=== PATIENT | male | born 1940 | race Caucasian/White ===

== ENCOUNTER 2017-08-20 18:36 | Observation (INO) | payer BC, OTHER ==
--- NOTE | 2017-08-20 18:37 | PDOC ---
History of Present Illness <Winnie Payne - Last Filed: 08/20/17 18:39> - General History Source: Patient Exam Limitations: No Limitations - History of Present Illness Initial Comments: 08/20/17 19:02 The patient is a 76-year-old male, with a significant past medical history of CAD (stent x1 placed back in 1988), HTN, who presents to the ED with chest and neck discomfort today. The patient states that he experienced 3 episodes of pressure-like chest discomfort radiating up to his neck. At the onset of his pain the patient states he was not doing anything exertional but he does report shoveling snow and walking on the treadmill earlier in the day. He denies any diaphoresis or clamminess. He denies any nausea or shortness of breath. He took a full aspirin prior to arrival. He denies having a history of HI. The patient has no chest pain at this time. The patient denies any fever, chills, nausea, vomiting, diarrhea, or abdominal pain. <Macy Hastings - Last Filed: 08/20/17 19:09> - General Chief Complaint: Chest Pain Stated Complaint: chest pain Time Seen by Provider: 08/20/17 18:37 Past History <Winnie Payne - Last Filed: 08/20/17 18:39> <Macy Hastings - Last Filed: 08/20/17 19:09> - Past Medical History Allergies/Adverse Reactions: Allergies Allergy/AdvReac Type Severity Reaction Status Date / Time No Known Allergies Allergy Verified 08/20/17 18:37 Home Medications: Ambulatory Orders Acetaminophen [Tylenol] 325 mg PO QID PRN 08/20/17 Aspirin 81 mg PO DAILY 08/20/17 Atorvastatin Ca [Lipitor] 20 mg PO HS 08/20/17 Azelastine HCl [Astepro] 0 - 2 spr NS DAILY 08/20/17 Gabapentin 200 mg PO HS 08/20/17 Melatonin 1 mg PO HS 08/20/17 Metoprolol Tartrate 25 mg PO DAILY 08/20/17 Multivitamin/Iron/Folic Acid [Centrum Adults Tablet] 1 each PO ASDIR 08/20/17 Sildenafil Citrate [Viagra] 100 mg PO ASDIR 08/20/17 Simvastatin 20 mg PO DAILY 08/20/17 Zolpidem Tartrate [Ambien Cr] 12.5 mg PO DAILY PRN 08/20/17 Review of Systems - Review of Systems Able to Perform ROS?: Yes Comments:: 08/20/17 19:02 GENERAL/CONSTITUTIONAL: No fever or chills. No weakness. HEAD, EYES, EARS, NOSE AND THROAT: No change in vision. No ear pain or discharge. No sore throat. CARDIOVASCULAR: (+)chest discomfort. No shortness of breath. RESPIRATORY: No cough, wheezing, or hemoptysis. GASTROINTESTINAL: No nausea, vomiting, diarrhea or constipation. GENITOURINARY: No dysuria, frequency, or change in urination. MUSCULOSKELETAL: No joint or muscle swelling or pain. No neck or back pain. SKIN: No rash NEUROLOGIC: No headache, vertigo, loss of consciousness, or change in strength/ sensation. ENDOCRINE: No increased thirst. No abnormal weight change. HEMATOLOGIC/LYMPHATIC: No anemia, easy bleeding, or history of blood clots. ALLERGIC/IMMUNOLOGIC: No hives or skin allergy. <Macy Hastings - Last Filed: 08/20/17 19:09> *Physical Exam - Vital Signs Last Vital Signs Temp Pulse Resp BP Pulse Ox 97.9 F 60 18 124/63 100 08/20/17 18:36 08/20/17 18:36 08/20/17 18:36 08/20/17 18:36 08/20/17 18:36 - Physical Exam Comments: 08/20/17 19:05 GENERAL: Awake, alert, and fully oriented, in no acute distress HEAD: No signs of trauma EYES: PERRLA, EOMI, sclera anicteric, conjunctiva clear ENT: Auricles normal inspection, hearing grossly normal, nares patent, oropharynx clear without exudates. Moist mucosa NECK: Normal ROM, supple, no lymphadenopathy, JVD, or masses LUNGS: Breath sounds equal, clear to auscultation bilaterally. No wheezes, and no crackles HEART: Regular rate and rhythm, normal S1 and S2, no murmurs, rubs or gallops ABDOMEN: Soft, nontender, normoactive bowel sounds. No guarding, no rebound. No masses EXTREMITIES: Normal range of motion, no edema. No clubbing or cyanosis. No cords, erythema, or tenderness NEUROLOGICAL: Cranial nerves II through XII grossly intact. Normal speech, normal gait SKIN: Warm, Dry, normal turgor, no rashes or lesions noted <Macy Hastings - Last Filed: 08/20/17 19:09> Heart Score/ECG Review - ECG Intrepretation Comment:: 08/20/17 18:39 sinus at 60 w 1st degree av block, nl axis, nl interval, no acute st/t wave findings <Winnie Payne - Last Filed: 08/20/17 18:39> ED Treatment Course - LABORATORY CBC & Chemistry Diagram: 08/20/17 18:40 08/20/17 18:48 <Macy Hastings - Last Filed: 08/20/17 19:09> Medical Decision Making - Medical Decision Making 08/20/17 18:41 a/p: 76yo male with hx of CAD w stent in to RCA with cp/neck pain -concerning given hx of CAD for acs -chest and neck pressure today intermittently x 3 episodes -ekg nonacute -will check labs, ekg, cxr, trops -took ASA coke burner -will need ACS r/o -no PE risk factors <Winnie Payne - Last Filed: 08/20/17 18:39> *DC/Admit/Observation/Transfer - Attestations Physician Attestion: 08/20/17 18:43 I, Dr. Winnie Payne DO, attest that this document has been prepared under my direction and personally reviewed by me in its entirety. I further attest, that it accurately reflects all work, treatment, procedures and medical decision -making performed by me. <Winnie Payne - Last Filed: 08/20/17 18:39> - Attestations Scribe Attestion: 08/20/17 19:06 Documentation prepared by Macy Hastings, acting as biomedical equipment tech for Winnie Payne DO, MD. <Macy Hastings - Last Filed: 08/20/17 19:09> Diagnosis at time of Disposition: Chest pain - Discharge Dispostion Condition at time of disposition: Fair
[2017-08-20 19:13] LABS: EOS % 5.1 % (0-4.5); MCH 25.6 pg (25.7-33.7); MCHC 33.9 g/dl (32.0-35.9); MEAN CELL VOLUME 75.5 fl (80-96); MEAN PLT VOLUME 9.7 fl (7.5-11.1); NEUT % 68.2 % (42.8-82.8); PLATELET COUNT 140 K/MM3 (134-434); RDW 14.6 % (11.9-15.9); WHITE BLOOD COUNT 8.6 K/mm3 (4.0-10.8)
[2017-08-20 19:15] LABS: ACTIVATED PTT 26.2 SECONDS (24.0-38.9)
[2017-08-20 19:18] LABS: ALBUMIN 3.9 g/dl (3.5-5.0); ALK PHOS 60 U/L (32-92); ANION GAP 7 (8-16); BILIRUBIN,TOTAL 0.5 mg/dl (0.2-1.0); CALCIUM 8.9 mg/dl (8.4-10.2); CO2 25 mmol/L (22-28); CREATININE 1.2 mg/dl (0.6-1.3); GLUCOSE,RANDOM 102 mg/dl (74-106); SGOT/AST 25 U/L (10-42); SGPT/ALT 19 U/L (10-40); TOT PROT 5.7 g/dl (6.4-8.3)
[2017-08-20 19:19] LABS: CPK 201 IU/L (39-308)
--- NOTE | 2017-08-20 19:20 | PDOC ---
*Physical Exam - Vital Signs Last Vital Signs Temp Pulse Resp BP Pulse Ox 97.9 F 60 18 124/63 100 08/20/17 18:36 08/20/17 18:36 08/20/17 18:36 08/20/17 18:36 08/20/17 18:36 ED Treatment Course - LABORATORY CBC & Chemistry Diagram: 08/20/17 18:40 08/20/17 18:48 - ADDITIONAL ORDERS Additional order review: Laboratory Results 08/20/17 18:48 PTT (Actin FS) 26.2 L 08/20/17 18:40 RBC 5.07 MCV 75.5 L MCHC 33.9 RDW 14.6 MPV 9.7 Neutrophils % 68.2 Lymphocytes % 19.5 Monocytes % 6.2 Eosinophils % 5.1 H Basophils % 1.0 Progress Note - Progress Note Progress Note: Care of this patient was transferred to Dr. Payne at 1900 hrs. This is a 76- year-old male with a good story for chest pain/ACS. Patient has a workup in progress. Plan is that patient will need to be admitted to a observation telemetry bed if his workup is negative. 19:30 Reevaluation. Patient remains chest pain-free in the emergency room. His troponin is less than 0.03 His chest x-ray shows no acute pathology His EKG shows no acute ST-T wave changes. Discussed with patient and observation admission to rule out ACS with 2 more sets of enzymes. Patient will be admitted to a observation telemetry bed. Discussed admission with the hospitalist team who will admit patient. Patient accepted for observation admission. *DC/Admit/Observation/Transfer Diagnosis at time of Disposition: Chest pain Qualifiers: Chest pain type: unspecified Qualified Code(s): R07.9 - Chest pain, unspecified - Discharge Dispostion Disposition: AGAINST MEDICAL ADVICE Condition at time of disposition: Fair Admit: Yes - Referrals - Patient Instructions - Post Discharge Activity
[2017-08-20 19:25] LABS: BASO # 0.1 # (0.1-1); EOS # 0.4 #; LYMPH # 1.7 # (8-40); MONO # 0.5 #; NEUT # 5.9 # (42.8-82.8)
[2017-08-20 19:26] LABS: INR 1.2 (0.82-1.09); PROTHROMBIN TIME (PATIENT) 13.4 SEC (10.2-13.0)
[2017-08-20 19:42] LABS: TROPONIN I (DFP) < 0.03 ng/ml (0.03-0.50)
--- NOTE | 2017-08-20 22:32 | HP ---
CHIEF COMPLAINT: Chest pressure PCP: [facility] [place]; Cardiology: Freddie Lopez, [facility] HISTORY OF PRESENT ILLNESS: This is a 76 year old male with a past medical history of CAD, stent '98 RCA, HTN, HLD who presented to the ED with c/o 3 episodes chest/neck pressure today. The episodes occurred spontaneously at rest, no precipitating or alleviating factors. Resolved without intervention after a few minutes each time. Pt did his usual exercise activity on the bike in the AM and the treadmill in PM without any symptoms. He has no symptoms on exam. ER course was notable for: (1) troponin neg (2) ECG WNl Recent Travel: [place] in May PAST MEDICAL HISTORY: CAD s/p RCA stent 98 HTN HLD reflux OA PAST SURGICAL HISTORY: hemorrhoidectomy vasectomy tonsil/adenoidectomy appendectomy prostatectomy R TKR B/L [facility] surgery mult toes Social History: Smoking: quit 50y ago Alcohol: cordial at bedtime, used to drink one glass red wine with dinner but recently stopped Drugs: pt denies Family History: mother , 80s, CVA father early 50s, CVA vs NM one brother with a 4v CABG Allergies No Known Allergies Allergy (Verified 08/20/17 18:37) HOME MEDICATIONS: 3 Medication Instructions Recorded Acetaminophen [Tylenol] 325 mg PO QID PRN 08/20/17 Aspirin 81 mg PO DAILY 08/20/17 Atorvastatin Ca [Lipitor] 20 mg PO HS 08/20/17 Azelastine HCl [Astepro] 0 - 2 spr NS DAILY 08/20/17 Desloratadine 5 mg PO HS 08/20/17 Gabapentin 200 mg PO HS 08/20/17 Melatonin 1 mg PO HS 08/20/17 Metoprolol Tartrate 25 mg PO DAILY 08/20/17 Multivitamin/Iron/Folic Acid 1 each PO ASDIR 08/20/17 [Centrum Adults Tablet] Ranitidine HCl 75 mg PO DAILY 08/20/17 Sildenafil Citrate [Viagra] 100 mg PO ASDIR 08/20/17 Zolpidem Tartrate [Ambien Cr] 12.5 mg PO DAILY PRN 08/20/17 REVIEW OF SYSTEMS CONSTITUTIONAL: Absent: fever, chills, diaphoresis, generalized weakness, malaise, loss of appetite, weight change HEENT: Absent: rhinorrhea, nasal congestion, throat pain, throat swelling, difficulty swallowing, mouth swelling, ear pain, eye pain, visual changes CARDIOVASCULAR: Present: chest pressure Absent: chest pain, syncope, palpitations, irregular heart rate, lightheadedness , peripheral edema RESPIRATORY: Absent: cough, shortness of breath, dyspnea with exertion, orthopnea, wheezing, stridor, hemoptysis GASTROINTESTINAL: Absent: abdominal pain, abdominal distension, nausea, vomiting, diarrhea, constipation, melena, hematochezia GENITOURINARY: Absent: dysuria, frequency, urgency, hesitancy, hematuria, flank pain, genital pain MUSCULOSKELETAL: Absent: myalgia, arthralgia, joint swelling, back pain, neck pain SKIN: Absent: rash, itching, pallor HEMATOLOGIC/IMMUNOLOGIC: Absent: easy bleeding, easy bruising, lymphadenopathy, frequent infections ENDOCRINE: Absent: unexplained weight gain, unexplained weight loss, heat intolerance, cold intolerance NEUROLOGIC: Absent: headache, focal weakness or paresthesias, dizziness, unsteady gait, seizure, mental status changes, bladder or bowel incontinence PSYCHIATRIC: Absent: anxiety, depression, suicidal or homicidal ideation, hallucinations. PHYSICAL EXAMINATION Vital Signs - 24 hr 3 08/20/17 18:36 Temperature 97.9 F Pulse Rate 60 Respiratory 18 Rate Blood Pressure 124/63 O2 Sat by Pulse 100 Oximetry (%) GENERAL: Awake, alert, and fully oriented, in no acute distress. HEAD: Normal with no signs of trauma. EYES: Pupils equal, round and reactive to light, extraocular movements intact, sclera anicteric, conjunctiva clear. No lid lag. EARS, NOSE, THROAT: Ears normal, nares patent, oropharynx clear without exudates. Moist mucous membranes. NECK: Normal range of motion, supple without lymphadenopathy, JVD, or masses. LUNGS: Breath sounds equal, clear to auscultation bilaterally. No wheezes, and no crackles. No accessory muscle use. HEART: Regular rate and rhythm, normal S1 and S2 without murmur, rub or gallop. ABDOMEN: Soft, nontender, not distended, normoactive bowel sounds, no guarding, no rebound, no masses. No hepatomegaly or splenomegaly. MUSCULOSKELETAL: Normal range of motion at all joints. No bony deformities or tenderness. No CVA tenderness. UPPER EXTREMITIES: 2+ pulses, warm, well-perfused. No cyanosis. No clubbing. No peripheral edema. LOWER EXTREMITIES: 2+ pulses, warm, well-perfused. No calf tenderness. No peripheral edema. NEUROLOGICAL: Cranial nerves II-XII intact. Normal speech. Normal gait. PSYCHIATRIC: Cooperative. Good eye contact. Appropriate mood and affect. SKIN: Warm, dry, normal turgor, no rashes or lesions noted, normal capillary refill. Laboratory Results - last 24 hr 3 08/20/17 08/20/17 08/20/17 18:40 18:48 18:48 WBC 8.6 RBC 5.07 Hgb 13.0 Hct 38.3 MCV 75.5 L MCH 25.6 L MCHC 33.9 RDW 14.6 Plt Count 140 MPV 9.7 Neutrophils % 68.2 Lymphocytes % 19.5 Monocytes % 6.2 Eosinophils % 5.1 H Basophils % 1.0 PT with INR 13.4 H INR 1.20 PTT (Actin FS) 26.2 L Sodium 136 Potassium 4.4 Chloride 104 Carbon Dioxide 25 Anion Gap 7 L BUN 32 H Creatinine 1.2 Creat Clearance w eGFR 58.71 Random Glucose 102 Calcium 8.9 Magnesium 2.0 Total Bilirubin 0.5 AST 25 ALT 19 Alkaline Phosphatase 60 Creatine Kinase 201 Creatine Kinase Index 4.3 CK-MB (CK-2) 8.7 H Troponin I < 0.03 L B-Natriuretic Peptide 208.95 Total Protein 5.7 L Albumin 3.9 ECG Normal sinus rhythm vent rate 60, QTC [address]/t changes Radiology Reports CXR No obvious infiltrate or effusion ASSESSMENT/PLAN: 76yM with PMH CAD, stent, HTN, HLD, OA presented to the ED with 3 episodes chest pressure today. Chest pain - trend troponin x 3, 1st negative - cardiology consult as outpatient unless trop abnl - cardiac monitoring overnight HTN/HLD - cont home meds GERD - cont home zantac OA - cont home tylenol DVT PPX - chemoprophylaxis deferred as expected LOS <48h FEN - defer IV fluids, tolerating PO - BMP in am - low sodium diet in am Dispo: given pt h/o CAD and stent placement in past, he warrants overnight monitoring in telemetry. Visit type - Emergency Visit Emergency Visit: Yes ED Registration Date: 08/20/17 Care time: The patient presented to the Emergency Department on the above date and was hospitalized for further evaluation of their emergent condition. - New Patient This patient is new to me today: Yes Date on this admission: 08/20/17 - Critical Care Critical Care patient: No
[2017-08-20] MEDS ORDERED: ZOLPIDEM TARTRATE 5 MG TABLET PO PRN (22:40)
[2017-08-20] MEDS ORDERED: MULTIVITAMINS (DAILY MVI) TABLET (FP) PO SCH (22:45)
[2017-08-20] MEDS ORDERED: GABAPENTIN 100 MG CAPSULE (FP) PO ONE (23:15)
[2017-08-20] MEDS ORDERED: ATORVASTATIN CA 20 MG TABLET (FP) PO ONE (23:30)
[2017-08-20 23:46] VITALS: BMI 23.5
[2017-08-21 02:21] LABS: CPK 157 IU/L (39-308); TROPONIN I < 0.02 ng/ml (0.00-0.05)
[2017-08-21] MEDS ORDERED: ACETAMINOPHEN 325 MG TABLET (FP) PO SCH (08:00)
[2017-08-21] MEDS ORDERED: ACETAMINOPHEN 500 MG TABLET (FP) PO SCH (08:00)
[2017-08-21 08:17] LABS: BASO % 0.7 % (0-2.0); EOS % 5.6 % (0-4.5); MCH 25.8 pg (25.7-33.7); MCHC 33.9 g/dl (32.0-35.9); MEAN PLT VOLUME 10.7 fl (7.5-11.1); NEUT % 68.1 % (42.8-82.8); PLATELET COUNT 139 K/MM3 (134-434); RDW 14.5 % (11.9-15.9)
[2017-08-21 08:37] LABS: ANION GAP 6 (8-16); CALCIUM 9.2 mg/dl (8.4-10.2); CO2 27 mmol/L (22-28); CREATININE 1.2 mg/dl (0.6-1.3); GLUCOSE,RANDOM 100 mg/dl (74-106); MAGNESIUM 2.1 mg/dL (1.8-2.4)
[2017-08-21 08:38] LABS: CPK 150 IU/L (39-308)
[2017-08-21 09:16] VITALS: BP 125/58; PULSE 58; TEMP 97.6
[2017-08-21 09:20] LABS: TROPONIN I (DFP) < 0.03 ng/ml (0.03-0.50)
--- NOTE | 2017-08-21 09:26 | DS ---
Physical Exam: SUBJECTIVE: Patient seen and examined, ambulatory at bedside, denies any dyspnea upon exertion, denies any chest pain or shortness of breath. Patient reports chest discomfort resolved prior to arrival to the emergency department. OBJECTIVE: Patient is a 76 year old male with a past medical history of CAD, stent '98 RCA, HTN, HLD who presented to the ED with c/o 3 episodes chest/neck pressure today. The episodes occurred spontaneously at rest, no precipitating or alleviating factors. Resolved without intervention after a few minutes each time. Pt did his usual exercise activity on the bike in the AM and the treadmill in PM without any symptoms. He has no symptoms on exam. ER course was notable for: (1) troponin neg (2) ECG WNl padded products inspector trimmer: Dr Lopez Vital Signs Period Temp Pulse Resp BP Sys/Lott Pulse Ox Last 24 Hr 97.6 F-98.7 F 51-60 17-18 123-138/57-63 97-100 PHYSICAL EXAM GENERAL: The patient is thin, awake, alert, and fully oriented, in no acute distress. HEAD: Normal with no signs of trauma. EYES: PERRL, extraocular movements intact, sclera anicteric, conjunctiva clear. ENT: Ears normal, nares patent, oropharynx clear without exudates, moist mucous membranes. NECK: Trachea midline, full range of motion, supple. LUNGS: Breath sounds equal, clear to auscultation bilaterally, no wheezes, no crackles, no accessory muscle use. HEART: Regular rate and rhythm, S1, S2, 3/6 systolic murmur, no rub or gallop. ABDOMEN: Soft, nontender, nondistended, normoactive bowel sounds, no guarding, no rebound, no hepatosplenomegaly, no masses. EXTREMITIES: 2+ pulses, warm, well-perfused, no edema. NEUROLOGICAL: Cranial nerves II through XII grossly intact. Normal speech, gait not observed. PSYCH: Normal mood, normal affect. SKIN: Warm, dry, normal turgor, no rashes or lesions noted. LABS Laboratory Results - last 24 hr 08/20/17 08/20/17 08/20/17 18:40 18:48 18:48 WBC 8.6 RBC 5.07 Hgb 13.0 Hct 38.3 MCV 75.5 L MCH 25.6 L MCHC 33.9 RDW 14.6 Plt Count 140 MPV 9.7 Neutrophils % 68.2 Lymphocytes % 19.5 Monocytes % 6.2 Eosinophils % 5.1 H Basophils % 1.0 PT with INR 13.4 H INR 1.20 PTT (Actin FS) 26.2 L Sodium 136 Potassium 4.4 Chloride 104 Carbon Dioxide 25 Anion Gap 7 L BUN 32 H Creatinine 1.2 Creat Clearance w eGFR 58.71 Random Glucose 102 Calcium 8.9 Phosphorus Magnesium 2.0 Total Bilirubin 0.5 AST 25 ALT 19 Alkaline Phosphatase 60 Creatine Kinase Creatine Kinase Index CK-MB (CK-2) Troponin I B-Natriuretic Peptide Total Protein 5.7 L Albumin 3.9 08/20/17 08/20/17 08/21/17 18:48 18:48 00:47 WBC RBC Hgb Hct MCV MCH MCHC RDW Plt Count MPV Neutrophils % Lymphocytes % Monocytes % Eosinophils % Basophils % PT with INR INR PTT (Actin FS) Sodium Potassium Chloride Carbon Dioxide Anion Gap BUN Creatinine Creat Clearance w eGFR Random Glucose Calcium Phosphorus Magnesium Total Bilirubin AST ALT Alkaline Phosphatase Creatine Kinase 201 157 Creatine Kinase Index 4.3 3.4 CK-MB (CK-2) 8.7 H 5.376 H Troponin I < 0.03 L < 0.02 B-Natriuretic Peptide 208.95 Total Protein Albumin 08/21/17 08/21/17 08/21/17 07:00 07:00 07:00 WBC 8.0 RBC 5.28 Hgb 13.6 Hct 40.1 MCV 76.0 L MCH 25.8 MCHC 33.9 RDW 14.5 Plt Count 139 MPV 10.7 D Neutrophils % 68.1 Lymphocytes % 19.1 Monocytes % 6.5 Eosinophils % 5.6 H Basophils % 0.7 PT with INR INR PTT (Actin FS) Sodium 137 Potassium 4.1 Chloride 104 Carbon Dioxide 27 Anion Gap 6 L BUN 29 H Creatinine 1.2 Creat Clearance w eGFR Random Glucose 100 Calcium 9.2 Phosphorus 4.0 Magnesium 2.1 Total Bilirubin AST ALT Alkaline Phosphatase Creatine Kinase 150 Creatine Kinase Index 5.0 CK-MB (CK-2) 7.6 H Troponin I < 0.03 L B-Natriuretic Peptide Total Protein Albumin Laboratory Tests 08/20/17 08/21/17 08/21/17 18:48 00:47 07:00 Troponin I < 0.03 L < 0.02 < 0.03 L IMAGING ekg nsr normal axis chest xray: no acute pathology HOSPITAL COURSE: Patient was admitfed from the emergency department to observation for chest pain r/o acs. troponin x 3 wnl, patient denied any chest pain or discomfort soon after arrival to the emergency department. He was ambulatory throughout the nursing station on cardiac monitoring no events was noted, patient denies any dyspnea upon exertion. Case discussed with patient's private padded products inspector trimmer, Dr Lopez agrees with plan for discharge and strict follow up within 2 days. Patient has a past medical history of hypertension, home medications was continued and blood pressure remained at goal. PLAN - discharge home with strict follow to padded products inspector trimmer Dr Patrick - continue all medications as prescribed - return precautions reviewed Date of Admission:08/20/17 Date of Discharge: 08/21/17 Minutes to complete discharge: 45 Discharge Summary Reason For Visit: chest pain Current Active Problems Chest pain (Acute) Condition: Fair - Instructions - Home Medications Comprehensive Discharge Medication List: Ambulatory Orders Acetaminophen [Tylenol] 325 mg PO QID PRN 08/20/17 Aspirin 81 mg PO DAILY 08/20/17 Atorvastatin Ca [Lipitor] 20 mg PO HS 08/20/17 Azelastine HCl [Astepro] 0 - 2 spr NS DAILY 08/20/17 Desloratadine 5 mg PO HS 08/20/17 Gabapentin 200 mg PO HS 08/20/17 Melatonin 1 mg PO HS 08/20/17 Metoprolol Tartrate 25 mg PO DAILY 08/20/17 Multivitamin/Iron/Folic Acid [Centrum Adults Tablet] 1 each PO ASDIR 08/20/17 Ranitidine HCl 75 mg PO DAILY 08/20/17 Sildenafil Citrate [Viagra] 100 mg PO ASDIR 08/20/17 Zolpidem Tartrate [Ambien Cr] 12.5 mg PO DAILY PRN 08/20/17 This patient is new to me today: Yes Date on this admission: 08/21/17 Emergency Visit: Yes ED Registration Date: 08/20/17 Care time: The patient presented to the Emergency Department on the above date and was hospitalized for further evaluation of their emergent condition. Critical Care patient: No - Discharge Referral Referred to [facility] No
[2017-08-21] MEDS ORDERED: METOPROLOL TARTRATE 25 MG TABLET (FP) PO SCH (10:00)
[2017-08-21] MEDS ORDERED: MULTIVITAMINS (DAILY MVI) TABLET (FP) PO SCH (10:00)
[2017-08-21] MEDS ORDERED: ASPIRIN 81 MG CHEWABLE TABLETS PO SCH (10:00)
--- NOTE | 2017-08-21 13:02 | EKG ---
Test Reason : Blood Pressure : / mmHG Vent. Rate : 060 BPM Atrial Rate : 060 BPM P-R Int : 206 ms QRS Dur : 094 ms QT Int : 398 ms P-R-T Axes : 049 013 043 degrees QTc Int : 398 ms NORMAL SINUS RHYTHM NORMAL ECG NO PREVIOUS ECGS AVAILABLE Confirmed by MD Bossman, Gage ([id number] on 08/21/2017 1:02:08 PM Referred By: Jesika Snyder Confirmed By:Gage Keita MD
[2017-08-21] MEDS ORDERED: RANITIDINE HCL 150 MG TABLET (FP) PO SCH (18:00)
[2017-08-21] MEDS ORDERED: MELATONIN 1 MG TABLET PO SCH (22:00)
[2017-08-21] MEDS ORDERED: GABAPENTIN 100 MG CAPSULE (FP) PO SCH (22:00)
[2017-08-21] MEDS ORDERED: LORATADINE 10 MG TABLET PO SCH (22:00)
[2017-08-21] MEDS ORDERED: ATORVASTATIN CA 20 MG TABLET (FP) PO SCH (22:00)
== END 2017-08-21 10:25 | disposition home or self-care (01) ==
LOC: FER 18:36 → FM/S 20:49
PROVIDERS: ADMIT Internal Medicine; ATTEND Nurse Practitioner Family
DX: R07.9 Chest pain, unspecified (principal); I10 Essential (primary) hypertension; I25.10 Atherosclerotic heart disease of native coronary artery without angina pectoris; E78.5 Hyperlipidemia, unspecified; K21.9 Gastro-esophageal reflux disease without esophagitis; M19.90 Unspecified osteoarthritis, unspecified site; Z95.1 Presence of aortocoronary bypass graft; Z79.82 Long term (current) use of aspirin
CPT/HCPCS: 36415; 71010-TC; 80048; 80053; 82550; 82553; 83735; 83880; 84100; 84484; 85025; 85610; 85730; 93005; 99283-25; G0378

== ENCOUNTER 2019-02-20 17:09 | Emergency (ER) | payer OTHER ==
[2019-02-20 17:12] VITALS: BMI 21.7
[2019-02-20 17:22] VITALS: BP 146/67; PULSE 56; TEMP 97.7
[2019-02-20] MEDS ORDERED: diphenhydrAMINE HCL 25 MG CAPSULE (FP) PO ONE ×2 (17:33→17:42)
[2019-02-20] MEDS ORDERED: predniSONE 20 MG TABLET (UD) PO ONE (17:33)
--- NOTE | 2019-02-20 17:39 | PDOC ---
Documentation entered by Wu Moe SCRIBE, acting as scribe for Kwabena Fox MD. Kwabena Fox MD: This documentation has been prepared by the Abhi kwong Collisia, SCRIBE, under my direction and personally reviewed by me in its entirety. I confirm that the documentation accurately reflects all work, treatment, procedures, and medical decision making performed by me. History of Present Illness - General Chief Complaint: Bite Stated Complaint: bee sting Time Seen by Provider: 02/20/19 17:12 History Source: Patient, Old Records Exam Limitations: No Limitations - History of Present Illness Initial Comments: 02/20/19 17:45 The patient is a 78 year old male with a significant past medical history of CAD and hypertension who presents to the emergency department with a wasp bite since yesterday. The patient states that he was outdoors yesterday when he got stung. He reports following up with his PCP by which he was told to come to the ED for further evaluation. The patient reports some associated left eye swelling. He denies any associated drainage, vision change .he denies any fever , chills, nausea, vomiting, diarrhea, constipation or urinary symptoms. He denies any chest pain, shortness of breath,headache or dizziness. The patient denies any other complaints. Past History - Past Medical History Allergies/Adverse Reactions: Allergies Allergy/AdvReac Type Severity Reaction Status Date / Time No Known Allergies Allergy Verified 02/20/19 17:10 Home Medications: Ambulatory Orders Aspirin 81 mg PO DAILY 08/20/17 Atorvastatin Ca [Lipitor] 20 mg PO HS 08/20/17 Melatonin 1 mg PO HS 08/20/17 Metoprolol Tartrate 25 mg PO DAILY 08/20/17 Multivitamin/Iron/Folic Acid [Centrum Adults Tablet] 1 each PO ASDIR 08/20/17 Apremilast [Otezla] 30 mg PO BID 02/20/19 Cephalexin Monohydrate [Keflex -] 500 mg PO Q6H #28 capsule 02/20/19 Clopidogrel Bisulfate [Plavix] 75 mg PO DAILY 02/20/19 Diphenhydramine HCl [Benadryl -] 25 mg PO Q6H PRN #28 capsule 02/20/19 predniSONE [Deltasone -] 40 mg PO DAILY #8 tablet 06/27/19 Cardiac Disorders: Yes COPD: No GI Disorders: Yes (GERD) HTN: Yes Hypercholesterolemia: Yes - Surgical History Appendectomy: Yes Cardiac Surgery: Yes (STENT) Orthopedic Surgery: Yes (Rt Knee) - Suicide/Smoking/Psychosocial Hx Smoking History: Never smoked Have you smoked in the past 12 months: No If you are a former smoker, when did you quit?: 1960's Hx Alcohol Use: No Drug/Substance Use Hx: No Substance Use Type: None Hx Substance Use Treatment: No Review of Systems - Review of Systems Able to Perform ROS?: Yes Comments:: 02/20/19 17:45 GENERAL/CONSTITUTIONAL: No fever or chills. No weakness. HEAD, EYES, EARS, NOSE AND THROAT: (+)left periorbital swelling. No change in vision. No ear pain or discharge. No sore throat. CARDIOVASCULAR: No chest pain or shortness of breath. RESPIRATORY: No cough, wheezing, or hemoptysis. GASTROINTESTINAL: No nausea, vomiting, diarrhea or constipation. GENITOURINARY: No dysuria, frequency, or change in urination. MUSCULOSKELETAL: No joint or muscle swelling or pain. No neck or back pain. SKIN: No rash NEUROLOGIC: No headache, vertigo, loss of consciousness, or change in strength/ sensation. ENDOCRINE: No increased thirst. No abnormal weight change. HEMATOLOGIC/LYMPHATIC: No anemia, easy bleeding, or history of blood clots. ALLERGIC/IMMUNOLOGIC: No hives or skin allergy. *Physical Exam - Vital Signs Last Vital Signs Temp Pulse Resp BP Pulse Ox 18 0/0 L 02/20/19 17:10 02/20/19 17:10 - Physical Exam Comments: 02/20/19 17:45 GENERAL: Awake, alert, and fully oriented, in no acute distress HEAD: No signs of trauma EYES: (+)periorbital edema.PERRLA, EOMI, sclera anicteric, conjunctiva clear. No induration or fluctuance. No discharge, no drainage. ENT: Auricles normal inspection, hearing grossly normal, nares patent, oropharynx clear without exudates. Moist mucosa NECK: Normal ROM, supple, no lymphadenopathy, JVD, or masses LUNGS: Breath sounds equal, clear to auscultation bilaterally. No wheezes, and no crackles HEART: Regular rate and rhythm, normal S1 and S2, no murmurs, rubs or gallops ABDOMEN: Soft, nontender, normoactive bowel sounds. No guarding, no rebound. No masses EXTREMITIES: Normal range of motion, no edema. No clubbing or cyanosis. No cords, erythema, or tenderness NEUROLOGICAL: Cranial nerves II through XII grossly intact. Normal speech, normal gait SKIN: Warm, Dry, normal turgor, no rashes or lesions noted. Medical Decision Making - Medical Decision Making 02/20/19 17:16 A portion of this note was documented by scribe services under my direction. I have reviewed the details of the note, within reason, and agree with the documentation with the following case summary and management plan written by me. Patient treated in the ED. Nursing notes are reviewed and incorporated into the medical decision-making. Vital signs reviewed. Peripheral IV access obtained by the nurse, laboratory studies are drawn and sent, reviewed and interpreted by myself. Vital Signs Temp Pulse Resp BP Pulse Ox 97.7 F 56 L 18 146/67 100 02/20/19 17:10 02/20/19 17:10 02/20/19 17:10 02/20/19 17:10 02/20/19 17:10 78 year old male with past medical history of coronary disease, RCA stent, hypertension, hyperlipidemia presents with left periorbital edema. Yesterday, pt was stung by a wasp around his upper eyelid. Today, started to note periorbital edema but no changes in visual acuity. No drainage or discharge or fever. Pt saw his optho physician who performed an eye exam (Dr. Barreto). Reports no eye involvement and no infection of the eye itself. Pt came to ED for further evaluation. Pt with periorbital edema but no pain on extraocular movements. I suspect that this is all inflammation secondary to insect sting. Given the severity of the periorbital edema, a prescription of benadryl and prednisone was given. However, pt is travelling to [facility] for 3 weeks. Pt is cleared to travel, but I will give him a prescription for cephalexin in case he gets an infection. I advised that if he develops fever/worsening redness/pain in that site, it may be infected. He states that he can text an image of his face to his doctor when he's in [facility] and then can start taking antibiotics if his doctor directs him so, or he can visit the local ER in [facility]. I feel comfortable with this plan and will have him follow up that way. I discussed the physical exam findings, ancillary test results and final diagnoses with the patient. I answered all of the patient's questions. The patient was satisfied with the care received and felt comfortable with the discharge plan and treatment plan. The patient will call their primary care physician within 24 hours to arrange follow-up and will return to the Emergency Department with any new, persistant or worsening symptoms. *DC/Admit/Observation/Transfer Diagnosis at time of Disposition: Wasp sting Qualifiers: Encounter type: initial encounter Injury intent: accidental or unintentional Qualified Code(s): T63.461A - Toxic effect of venom of wasps, accidental ( unintentional), initial encounter - Discharge Dispostion Disposition: HOME Condition at time of disposition: Stable Decision to Admit order: No - Prescriptions Prescriptions: Cephalexin Monohydrate [Keflex -] 500 mg PO Q6H #28 capsule Diphenhydramine HCl [Benadryl -] 25 mg PO Q6H PRN #28 capsule PRN Reason: Itching predniSONE [Deltasone -] 40 mg PO DAILY #8 tablet - Referrals - Patient Instructions Printed Discharge Instructions: DI for Insect Bites and Stings Additional Instructions: At this time, there is no evidence of infection. However, all of the swelling is due to the insect sting. Therefore, you should use cold compresses throughout the day to help with the swelling. Also, for itchiness, take 25 mg benadryl every 6 hours as needed. This medication may make you drowsy. For the swelling, take 40 mg prednisone daily (starting tomorrow on 02/21) for 4 more days. Given that you are traveling to [facility], please take a prescription of cephalexin (antibiotics) with you. If you start to notice worsening redness/fever/pain, you may be developing an infection. When you are in [facility], you have the option of calling your doctor and sending an image to your doctor to determine if you need an antibiotic. If that is the case, please start taking the antibiotics. If the swelling or pain is particularly very severe, please go to an ER in [facility]. You are cleared to fly to [facility]. - Post Discharge Activity Activity Comments: 02/20/19 17:39 Rey Coburn is cleared for travel to [facility].
[2019-02-20] MEDS ORDERED: predniSONE 20 MG TABLET (UD) ONE (17:42)
== END 2019-02-20 17:48 | disposition home or self-care (01) ==
LOC: FER 17:09
DX: T63.461A Toxic effect of venom of wasps, accidental (unintentional), initial encounter (principal); Y92.89 Other specified places as the place of occurrence of the external cause; H02.846 Edema of left eye, unspecified eyelid; I10 Essential (primary) hypertension; I25.10 Atherosclerotic heart disease of native coronary artery without angina pectoris; K21.9 Gastro-esophageal reflux disease without esophagitis; E78.00 Pure hypercholesterolemia, unspecified; Z95.5 Presence of coronary angioplasty implant and graft
CPT/HCPCS: 99282-25

== ENCOUNTER 2022-10-13 09:21 | Emergency (ER) | payer OTHER ==
[2022-10-13 09:26] VITALS: RESP 19; TEMP 97.6; BMI 20.5
[2022-10-13] MEDS ORDERED: oxyCODONE HCL 5 MG TABLET PO ONE (09:41)
[2022-10-13] MEDS ORDERED: oxyCODONE HCL 5 MG TABLET ONE (09:51)
[2022-10-13 11:13] VITALS: BP 148/55; PULSE 88
== END 2022-10-13 11:18 | disposition home or self-care (01) ==
LOC: FER 09:21
DX: M25.552 Pain in left hip (principal); M25.562 Pain in left knee
CPT/HCPCS: 73502-TC-LT-FY; 73562-TC-LT-FY; 99285-25